=== PATIENT | male | born 1995 | race Caucasian/White ===

== ENCOUNTER 2016-10-11 11:05 | Emergency (ER) | payer OTHER ==
[2016-10-11] MEDS ORDERED: OXYCODONE-ACETAMINOPHEN 5-325 MG TABLET PO ONE (11:17)
[2016-10-11] MEDS ORDERED: DIPH/PERTUSS(ACELL)/TETANUS VAC/PF 0.5 ML SYR (>=10YO) IM ONE (11:17)
--- NOTE | 2016-10-11 11:18 | ER Document Report ---
ED Medical Screen (RME) - General Stated Complaint: THUMB PAIN Mode of Arrival: Ambulatory Information source: Patient Notes: Patient history left thumb with a hammer. Patient reports nail injury. Tetanus is not currently up-to-date I have greeted and performed a rapid initial assessment of this patient. A comprehensive ED assessment and evaluation of the patient, analysis of test results and completion of the medical decision making process will be conducted by additional ED providers. - Related Data Allergies/Adverse Reactions: Sulfa (Sulfonamide Antibiotics) Allergy (Verified 10/11/16 11:16) Physical Exam - Vital signs Vitals: Temp Pulse Resp BP Pulse Ox 98.0 F 64 20 124/67 100 10/11/16 11:15 10/11/16 11:15 10/11/16 11:15 10/11/16 11:15 10/11/16 11:15 - Extremities General upper extremity: Tender - Left thumb with swelling Course - Vital Signs Vital signs: Temp Pulse Resp BP Pulse Ox 98.0 F 64 20 124/67 100 10/11/16 11:15 10/11/16 11:15 10/11/16 11:15 10/11/16 11:15 10/11/16 11:15
[2016-10-11] MEDS ORDERED: LIDOCAINE 1% INJ-PF (10 MG/ML) 30 ML SDV INJ ONE (12:48)
--- NOTE | 2016-10-11 12:51 | ER Document Report ---
ED General - General Time seen by provider: 12:50 Mode of Arrival: Ambulatory TRAVEL OUTSIDE OF THE [place] IN LAST 30 DAYS: No <KRISTIAN MONTEMAYOR - Last Filed: 10/11/16 14:32> <CHELSEY HARRINGTON - Last Filed: 10/11/16 21:02> - General Chief Complaint: Thumb Injury Stated Complaint: THUMB PAIN Notes: This is a 21-year-old male right hand dominant that presents today with a right thumb injury. He states that at 10:30 this morning he was working on a car and struck his thumb with a hammer. He states that the nail lifted however he placed it back into position. Patient denies any penetrating injury. He admits to a throbbing 8 out of 10 constant pain. (KRISTIAN MONTEMAYOR) - Related Data Allergies/Adverse Reactions: Sulfa (Sulfonamide Antibiotics) Allergy (Verified 10/11/16 11:16) Past Medical History - General Information source: Patient - Social History Smoking Status: Current Every Day Smoker Chew tobacco use (# tins/day): No Frequency of alcohol use: None Drug Abuse: None Patient has suicidal ideation: No Patient has homicidal ideation: No Renal/ Medical History: Denies: Hx Peritoneal Dialysis <KRISTIAN MONTEMAYOR - Last Filed: 10/11/16 14:32> - Social History Family History: Reviewed & Not Pertinent <CHELSEY HARRINGTON - Last Filed: 10/11/16 21:02> Procedures <KRISTIAN MONTEMAYOR - Last Filed: 10/11/16 14:32> - Laceration/Wound Repair Left Thumb Wound length (cm): 2 Wound's Depth, Shape: Irregular, Other - Nailbed Laceration pre-procedure: Sterile drapes applied Anesthetic type: 1% Lidocaine Volume Anesthetic (mLs): 8 - metacarpal block Wound explored: Clean, No foreign body removed Irrigated w/ Saline (mLs): 250 Wound Repaired With: Sutures Suture Size/Type: 4:0, Ethilon Number of Sutures: 3 Layer Closure?: No Post-procedure wound care: Sterile dressing applied Post-procedure NV exam normal: Yes <CHELSEY HARRINGTON - Last Filed: 10/11/16 21:02> - Laceration/Wound Repair Left Thumb Notes: 10/11/16 20:58 Patient has an injury which apparently involves the nail except for one side of it, from the nailbed. Patient pushed the nail back into its normal position. The injury resulted in the tear in the midportion of the thumb nail. A metacarpal block was performed on the right thumb. About 10 minutes later, patient had adequate anesthetic effect and I removed the nail and cleaned it. The nailbed has an irregular laceration across it, but I don't think it requires surgical repair. After cleaning the nail, I repositioned it in its proper location and then put 3 stay sutures near the tip of the nail to keep the nail in place. (CHELSEY HARRINGTON) Discharge <KRISTIAN MONTEMAYOR - Last Filed: 10/11/16 14:32> <CHELSEY HARRINGTON - Last Filed: 10/11/16 21:02> - Discharge Clinical Impression: Thumb fracture Qualifiers: Encounter type: initial encounter Fracture type: closed Phalanx: distal Fracture alignment: nondisplaced Laterality: right Qualified Code(s): S62.524A - Nondisplaced fracture of distal phalanx of right thumb, initial encounter for closed fracture Condition: Good Disposition: HOME, SELF-CARE Additional Instructions: Return to the emergency department if symptoms worsen such as redness, drainage , decreased range of motion, loss of sensation, etc. Follow-up with orthopedics as soon as possible. Return to the emergency department in the morning for suture removal in one week. Change bandage on of this week and daily thereafter. Prescriptions: Cephalexin Monohydrate [Keflex 250 mg Capsule] 250 mg PO QID #20 capsule Forms: Return to Work Referrals: [facility] [Provider Group] - Follow up as needed
[2016-10-11] MEDS ORDERED: HYDROCODONE/ACETAMINOPHEN 5-325 MG TABLET PO ONE (12:52)
[2016-10-11] MEDS ORDERED: HYDROCODONE/ACETAMINOPHEN 5-325 MG 6 TAB/DSPK PO PRN (14:31)
[2016-10-11 16:14] VITALS: BP 128/76
== END 2016-10-11 14:55 | disposition home or self-care (01) ==
LOC: ER 11:05
PROC: 0HBQXZZ Excision of Finger Nail, External Approach (ICD-10-PCS; principal; 2016-10-11)
DX: S62.524A Nondisplaced fracture of distal phalanx of right thumb, initial encounter for closed fracture (principal); S69.82XA Other specified injuries of left wrist, hand and finger(s), initial encounter; F17.200 Nicotine dependence, unspecified, uncomplicated; W22.8XXA Striking against or struck by other objects, initial encounter; Z23 Encounter for immunization
CPT/HCPCS: 99283; 90471; 73140; 90715; 11750; J3490

== ENCOUNTER 2016-10-20 10:33 | Emergency (ER) | payer OTHER ==
--- NOTE | 2016-10-20 10:42 | ER Document Report ---
ED Medical Screen (RME) - General Stated Complaint: STICHE REMOVAL Mode of Arrival: Ambulatory Information source: Patient Notes: Patient presents to the emergency department for suture removal. I have greeted and performed a rapid initial assessment of this patient. A comprehensive ED assessment and evaluation of the patient, analysis of test results and completion of the medical decision making process will be conducted by additional ED providers. TRAVEL OUTSIDE OF THE [place] IN LAST 30 DAYS: No - Related Data Allergies/Adverse Reactions: Sulfa (Sulfonamide Antibiotics) Allergy (Verified 10/11/16 11:16) Past Medical History Renal/ Medical History: Denies: Hx Peritoneal Dialysis Physical Exam - Vital signs Vitals: Temp Pulse Resp BP Pulse Ox 97.9 F 80 18 130/77 H 99 10/20/16 10:38 10/20/16 10:38 10/20/16 10:38 10/20/16 10:38 10/20/16 10:38 Course - Vital Signs Vital signs: Temp Pulse Resp BP Pulse Ox 97.9 F 80 18 130/77 H 99 10/20/16 10:38 10/20/16 10:38 10/20/16 10:38 10/20/16 10:38 10/20/16 10:38
--- NOTE | 2016-10-20 11:44 | ER Document Report ---
HPI - HPI Patient complains to provider of: suture removal Onset: Other - 10-11 Quality of pain: Throbbing Pain Level: 4 Context: 21 yo male had thumb tip sutured 10-11. throbbs. here for suture removal. Associated Symptoms: None Exacerbated by: Movement Relieved by: Denies Similar symptoms previously: Yes Recently seen / treated by doctor: Yes - ROS ROS below otherwise negative: Yes Systems Reviewed and Negative: Yes All other systems reviewed and negative - DERM Skin Color: Normal Past Medical History - General Information source: Patient - Social History Smoking Status: Current Every Day Smoker Chew tobacco use (# tins/day): No Frequency of alcohol use: None Drug Abuse: None Lives with: Spouse/Significant other Family History: Reviewed & Not Pertinent Patient has suicidal ideation: No Patient has homicidal ideation: No - Medical History Medical History: Negative Renal/ Medical History: Denies: Hx Peritoneal Dialysis Surgical Hx: Negative Vertical Provider Document - CONSTITUTIONAL Agree With Documented VS: Yes Exam Limitations: No Limitations General Appearance: No Apparent Distress - INFECTION CONTROL TRAVEL OUTSIDE OF THE [place] IN LAST 30 DAYS: No - HEENT HEENT: Normocephalic - NECK Neck: Supple - RESPIRATORY O2 Sat by Pulse Oximetry: 99 - MUSCULOSKELETAL/EXTREMETIES Musculoskeletal/Extremeties: MAEW, FROM, Non-Tender Notes: sutures to be removed thumb tip. no infection. N/V intact. - NEURO Motor/Sensory: No Motor Deficit, No Sensory Deficit - DERM Integumentary: Warm, Dry, Laceration - see above Course - Vital Signs Vital signs: Temp Pulse Resp BP Pulse Ox 97.9 F 80 18 130/77 H 99 10/20/16 10:38 10/20/16 10:38 10/20/16 10:38 10/20/16 10:38 10/20/16 10:38 Procedures - Immobilization Left Thumb Time completed: 11:47 Pre-Proc Neuro Vasc Exam: Normal Immobilizer type: Finger protection Performed by: PCT Post-Proc Neuro Vasc Exam: Normal Alignment checked and good: Yes Discharge - Discharge Clinical Impression: suture removal, distal left thumb tuft fracture Condition: Good Disposition: HOME, SELF-CARE Instructions: Suture Removal, Tuft Fracture of the Finger ([facility]), Acetaminophen , Use of Awni-Kue-Ofkfwun Ibuprofen ([facility]) Additional Instructions: splint to protect the tuft fracture call and schedule appointment with the hand orthopedic doctor for next week nail will grow out - takes 3 months to er any concerns Referrals: DEXTER MURRAY DO [ACTIVE STAFF] - Follow up in 3-5 days
[2016-10-20 12:03] VITALS: BP 114/75
== END 2016-10-20 12:02 | disposition home or self-care (01) ==
LOC: ER 10:33
DX: Z48.02 Encounter for removal of sutures (principal)